=== PATIENT | female | born 1955 | race Caucasian/White ===

== ENCOUNTER → 2018-06-26 | Outpatient (CLI) | payer BC | LOC: FIMAGING 13:33 | PROVIDERS: ATTEND Physician Assistant Surgical | DX: M43.16 Spondylolisthesis, lumbar region (principal); M51.36 Other intervertebral disc degeneration, lumbar region ==

== ENCOUNTER → 2018-10-11 | Outpatient (CLI) | payer BC | LOC: FIMAGING 10:43 | PROVIDERS: ATTEND Physician Assistant | DX: M43.16 Spondylolisthesis, lumbar region (principal) ==

== ENCOUNTER → 2019-01-01 | Outpatient (CLI) | payer BC | LOC: FIMAGING 10:33 | PROVIDERS: ATTEND Physician Assistant Surgical | DX: Z98.1 Arthrodesis status (principal); M51.36 Other intervertebral disc degeneration, lumbar region ==